=== PATIENT | male | born 1965 | race Two or more races ===

== ENCOUNTER → 2017-09-26 | Outpatient (CLI) | payer OTHER ==
[~2017-09-26] VITALS: Ht 152.4 cm; Wt 98.9 kg
[~2017-09-26] MED LIST: CRESTOR5 MG; GILTUSS TR TAB1 EACH; HYZAAR 50-12.51 EACH; MUCINEX DM ER1 EAC1; NEURONTIN300 MG PO; NORVASC2.5 M1; QVAR8.7 G1 PO; SINGULAIR10 MG; SYNTHROID50 MCG; XYZAL5 MG
== END | disposition home or self-care (01) ==
LOC: PPHC 11:56
DX: R05 Cough (principal); J06.9 Acute upper respiratory infection, unspecified; J11.1 Influenza due to unidentified influenza virus with other respiratory manifestations

== ENCOUNTER → 2017-10-02 13:53 | Outpatient (CLI) | payer OTHER ==
[~2017-10-02] VITALS: Ht 152.4 cm; Wt 98.0 kg
== END | disposition home or self-care (01) ==
LOC: PPHC 13:53
DX: R05 Cough (principal); Z76.0 Encounter for issue of repeat prescription

== ENCOUNTER 2023-07-02 07:55 | Outpatient (CLI) | payer OTHER | END 2023-07-02 08:14 | disposition home or self-care (01) | LOC: MRI 07:55 | PROVIDERS: ATTEND Urology | DX: R31.21 Asymptomatic microscopic hematuria (principal); N28.1 Cyst of kidney, acquired | CPT/HCPCS: 74183 ==

== ENCOUNTER 2024-04-02 13:57 | Emergency (ER) | payer OTHER ==
[~2024-04-02] VITALS: Ht 175.3 cm; Wt 97.5 kg
[2024-04-02] MEDS ORDERED: NORVASC5 MG PO (14:38)
[2024-04-02] MEDS ORDERED: SYNTHROID75 MCG PO (14:38)
[2024-04-02] MEDS ORDERED: SYMBICORT 16010.2 GM IH (14:38)
[2024-04-02] MEDS ORDERED: COZAAR50 MG PO (14:38)
[2024-04-02] MEDS ORDERED: ABATINEX680 MG PO (14:39)
[2024-04-02] MEDS ORDERED: XYZAL5 MG PO (14:39)
[2024-04-02] MEDS ORDERED: SINGULAIR10 MG PO (14:39)
[2024-04-02] MEDS ORDERED: CRESTOR5 MG PO (14:39)
[2024-04-02] MEDS ORDERED: VITAMIN D325 GM MC (14:40)
[2024-04-02] MEDS ORDERED: DEXAMETHASONE SODIUM PHOSPHATE 4 MG/ML VIAL IM STA (16:46)
[2024-04-02] MEDS ORDERED: ORPHENADRINE CITRATE 30 MG/ML AMPUL IM STA (16:46)
[2024-04-02] MEDS ORDERED: TRAMADOL HCL 50 MG TABLET PO STA (16:47)
[2024-04-02] MEDS ORDERED: TETRACYCLINE H250 M1 PO (18:55)
== END 2024-04-02 17:39 | disposition home or self-care (01) ==
LOC: ER 13:58
DX: K08.89 Other specified disorders of teeth and supporting structures (principal); Z88.0 Allergy status to penicillin; Z88.2 Allergy status to sulfonamides; Z91.018 Allergy to other foods

== ENCOUNTER 2024-08-26 07:24 | Emergency (ER) | payer OTHER ==
[~2024-08-26] VITALS: Ht 175.3 cm; Wt 102.1 kg
[~2024-08-26 07:24] MED LIST changes: +ABATINEX680 MG PO; +COZAAR50 MG PO; +CRESTOR5 MG PO; +NORVASC5 MG PO; +SINGULAIR10 MG PO; +SYMBICORT 16010.2 GM IH; +SYNTHROID75 MCG PO; +TETRACYCLINE H250 M1 PO; +VITAMIN D325 GM MC; +XYZAL5 MG PO
[2024-08-26 08:43] LABS: HEMATOCRIT 45.7 % (39.0-48.0); HEMOGLOBIN 15.6 g/dL (13-16.00); MEAN CORPUSCULAR HEMOGLOBIN 32.4 pg (27.00-32.0); MEAN CORPUSCULAR HGB CONC 34.1 g/dl (32.0-36.0); PLATELET COUNT 281 K/uL (150-450); RED BLOOD COUNT 4.81 M/uL (4.00-6.00); RED CELL DISTRIBUTION WIDTH 13.9 % (11.5-14.5)
[2024-08-26 09:19] LABS: URINE APPEARANCE Clear; URINE BILIRRUBIN Negative (NEGATIVE); URINE BLOOD NHT; URINE COLOR Yellow; URINE GLUCOSE Negative (NEGATIVE); URINE KETONE Negative (NEGATIVE); URINE LEUKOCYTE Negative; URINE NITRATE Negative; URINE PROTEIN Negative (NEGATIVE); URINE UROBILINOGEN 0.2 E.U./dl
[2024-08-26 09:23] LABS: URINE RBC 19.6 uL (0.0-20.8)
[2024-08-26 09:24] LABS: URINE BACTERIA 3.7 uL (0.0-1933); URINE EPITHELIAL CELLS 0.1 uL (0.0-38.8); URINE WBC 0.6 uL (0.0-23.2)
[2024-08-26 09:25] LABS: CALCIUM 9.1 mg/dL (8.5-10.1); CREATININE SERUM 0.98 mg/dL (0.70-1.30); GFR 78.83; POTASSIUM 3.87 mEq/L (3.5-5.1)
== END 2024-08-26 15:42 | disposition home or self-care (01) ==
LOC: ER 07:26
PROVIDERS: Emergency Medicine
DX: K57.30 Diverticulosis of large intestine without perforation or abscess without bleeding (principal); K52.89 Other specified noninfective gastroenteritis and colitis; N28.1 Cyst of kidney, acquired; I10 Essential (primary) hypertension; E03.9 Hypothyroidism, unspecified; Z88.0 Allergy status to penicillin; Z88.2 Allergy status to sulfonamides; Z91.018 Allergy to other foods

== ENCOUNTER 2025-02-17 11:08 | Emergency (ER) | payer OTHER ==
[~2025-02-17] VITALS: Ht 175.3 cm; Wt 97.5 kg
[2025-02-17 11:20] VITALS: BP 144/83; O2SAT 97
[2025-02-17] MEDS ORDERED: 0.9 % SODIUM CHLORIDE 1,000 ML IV STA (11:35)
[2025-02-17 12:39] LABS: BASO % 0.5 % (0.1-1.2); EOS # 0.13 (0.04-0.54); EOS % 1.7 % (0.7-7.0); HEMOGLOBIN 16.2 g/dL (13.7-17.5); LYMPH # 1.31 (1.18-3.74); LYMPH % 16.7 % (19.3-53.1); MEAN CORPUSCULAR HEMOGLOBIN 31.2 pg (25.6-32.2); MONO # 0.95 (0.24-0.82); NEUT # 5.41 (1.56-6.13); NEUT % 68.7 % (34.0-71.1); PLATELET COUNT 296 K/uL (163-369); RED BLOOD COUNT 5.19 M/uL (4.63-6.08); RED CELL DISTRIBUTION WIDTH 13.1 % (11.6-14.4)
[2025-02-17 12:42] LABS: MONO % 12.1 % (4.7-12.5)
[2025-02-17 12:56] LABS: CALCIUM 9.1 mg/dL (8.5-10.1); GFR 76.75; POTASSIUM 4.02 mEq/L (3.5-5.1)
[2025-02-17] MEDS ORDERED: BARIUM SULFATE 450 ML ORAL.SUSP PO ONE (12:59)
[2025-02-17 13:45] LABS: PH,URINE 6.5 (5.0-8.0); URINE APPEARANCE Clear; URINE BILIRRUBIN Negative (NEGATIVE); URINE BLOOD Negative; URINE COLOR Yellow; URINE GLUCOSE Negative (NEGATIVE); URINE KETONE 15 (NEGATIVE); URINE LEUKOCYTE Negative; URINE NITRATE Negative; URINE PROTEIN Negative (NEGATIVE); URINE UROBILINOGEN 0.2 E.U./dl
[2025-02-17 13:51] LABS: URINE EPITHELIAL CELLS 2.2 uL (0.0-38.8); URINE RBC 39.1 uL (0.0-20.8); URINE WBC 1.8 uL (0.0-23.2)
[2025-02-17 13:52] LABS: URINE BACTERIA 1.2 uL (0.0-1933)
[2025-02-17] MEDS ORDERED: INTESTINEX680 M1 PO (17:43)
[2025-02-17] MEDS ORDERED: LEVSIN/SL0.125 MG SL (17:43)
[2025-02-17] MEDS ORDERED: CIPRO500 MG PO (17:43)
[2025-02-17] MEDS ORDERED: PEPCID AC20 MG PO (17:43)
[2025-02-17] MEDS ORDERED: METRONIDAZOLE500 MG PO (17:43)
== END 2025-02-17 18:03 | disposition home or self-care (01) ==
LOC: ER 11:12
PROVIDERS: Emergency Medicine
DX: K52.9 Noninfective gastroenteritis and colitis, unspecified (principal); R10.9 Unspecified abdominal pain; I10 Essential (primary) hypertension; Z88.0 Allergy status to penicillin; Z88.2 Allergy status to sulfonamides; Z91.018 Allergy to other foods
CPT/HCPCS: 36415; 74177; Q9965

== ENCOUNTER 2025-02-22 11:40 | Inpatient (IN) | payer OTHER ==
[~2025-02-22] VITALS: Ht 175.3 cm; Wt 97.5 kg
[~2025-02-22 11:40] MED LIST changes: +CIPRO500 MG PO; +INTESTINEX680 M1 PO; +LEVSIN/SL0.125 MG SL; +METRONIDAZOLE500 MG PO; +PEPCID AC20 MG PO
[2025-02-22] MEDS ORDERED: 0.9 % SODIUM CHLORIDE 1,000 ML IV STA (14:07)
[2025-02-22 15:37] LABS: BASO % 0.3 % (0.1-1.2); HEMATOCRIT 49.3 % (40.1-51.0); HEMOGLOBIN 17.2 g/dL (13.7-17.5); LYMPH # 0.82 (1.18-3.74); LYMPH % 8.7 % (19.3-53.1); MEAN CORPUSCULAR HEMOGLOBIN 31.2 pg (25.6-32.2); MONO % 10.6 % (4.7-12.5); NEUT # 7.57 (1.56-6.13); NEUT % 80.2 % (34.0-71.1); PLATELET COUNT 293 K/uL (163-369); RED BLOOD COUNT 5.52 M/uL (4.63-6.08); RED CELL DISTRIBUTION WIDTH 13.2 % (11.6-14.4)
[2025-02-22 15:50] LABS: COVID-19 AG NEGATIVE (NEGATIVE)
[2025-02-22 15:55] LABS: POTASSIUM 3.72 mEq/L (3.5-5.1)
[2025-02-22 15:59] LABS: INFLUENZA A AG NEGATIVE (NEGATIVE); INFLUENZA B AG NEGATIVE (NEGATIVE)
[2025-02-22 16:01] LABS: CREATININE SERUM 1.09 mg/dL (0.70-1.30); GFR 69.48
[2025-02-22] MEDS ORDERED: ACETAMINOPHEN 500 MG GEL..CAP PO PRN (19:00)
[2025-02-22] MEDS ORDERED: FAMOTIDINE/PF 20 MG in 0.9 % SODIUM CHLORIDE 8 ML IV PUSH SCH (19:16)
[2025-02-22] MEDS ORDERED: IPRATROPIUM BROMIDE 0.5 MG/2.5 ML AMPUL.NEB IH SCH (19:17)
[2025-02-22] MEDS ORDERED: LEVALBUTEROL HCL 1.25 MG/3 ML SOLUTION IH SCH (19:17)
[2025-02-22] MEDS ORDERED: 0.9 % SODIUM CHLORIDE 1,000 ML IV SCH (19:30)
[2025-02-22] MEDS ORDERED: KETOROLAC TROMETHAMINE 15 MG VIAL IV ONE (19:30)
[2025-02-22] MEDS ORDERED: METHYLPREDNISOLONE SOD SUCC 125 MG VIAL IV ONE (19:30)
[2025-02-22] MEDS ORDERED: METHYLPREDNISOLONE SOD SUCC 125 MG VIAL ONE (19:35)
[2025-02-22] MEDS ORDERED: GUAIFEN/DEXTROMETHORPHAN/PE 10 ML BLIST.PACK PO ONE ×2 (19:35→23:54)
[2025-02-22] MEDS ORDERED: KETOROLAC TROMETHAMINE 30 MG VIAL ONE (19:35)
[2025-02-22] MEDS ORDERED: FAMOTIDINE/PF 20 MG/2 ML VIAL ONE (19:35)
[2025-02-22 20:48] VITALS: BP 122/75
[2025-02-22 20:48] LABS: URINE APPEARANCE Clear; URINE BILIRRUBIN Negative (NEGATIVE); URINE BLOOD Moderate; URINE COLOR Dark Yellow; URINE GLUCOSE Negative (NEGATIVE); URINE LEUKOCYTE Trace; URINE NITRATE Negative; URINE PROTEIN 30 (NEGATIVE); URINE UROBILINOGEN 0.2 E.U./dl
[2025-02-22 20:53] LABS: URINE EPITHELIAL CELLS 3.3 uL (0.0-38.8); URINE RBC 279.8 uL (0.0-20.8); URINE WBC 3.9 uL (0.0-23.2)
[2025-02-22 20:57] LABS: URINE BACTERIA 1.2 uL (0.0-1933); URINE KETONE 80 (NEGATIVE)
[2025-02-22 20:57] LABS: COVID-19 AG NEGATIVE (NEGATIVE)
[2025-02-22] MEDS ORDERED: CIPROFLOXACIN IN 5 % DEXTROSE 200 ML IV SCH (21:00)
[2025-02-22] MEDS ORDERED: GUAIFEN/DEXTROMETHORPHAN/PE 10 ML BLIST.PACK PO SCH (21:00)
[2025-02-22 21:04] LABS: INR 1.21; PARTIAL THROMBOPLASTIN TIME 28.7 SECONDS (22.0-34.0)
[2025-02-22 21:09] LABS: C-REACTIVE PROTEIN 1.37 MG/DL (0.00-0.29)
[2025-02-22] MEDS ORDERED: METRONIDAZOLE/SODIUM CHLORIDE 500 MG/100 ML PIGGYBACK IV ONE (23:54)
[2025-02-23] MEDS ORDERED: METRONIDAZOLE/SODIUM CHLORIDE 100 ML IV SCH (01:00)
[2025-02-23] MEDS ORDERED: FAMOTIDINE/PF 20 MG/2 ML VIAL ONE (05:26)
[2025-02-23] MEDS ORDERED: GUAIFEN/DEXTROMETHORPHAN/PE 10 ML BLIST.PACK PO ONE (05:26)
[2025-02-23] MEDS ORDERED: LEVOTHYROXINE SODIUM 75 MCG TABLET PO SCH (06:00)
[2025-02-23 07:36] VITALS: BP 124/75; O2SAT 96
[2025-02-23] MEDS ORDERED: LOSARTAN POTASSIUM 50 MG TABLET PO SCH (09:00)
[2025-02-23 09:40] LABS: HEMATOCRIT 46.5 % (40.1-51.0); HEMOGLOBIN 16.2 g/dL (13.7-17.5); LYMPH # 0.65 (1.18-3.74); LYMPH % 7.5 % (19.3-53.1); MONO # 0.25 (0.24-0.82); MONO % 2.9 % (4.7-12.5); NEUT # 7.68 (1.56-6.13); NEUT % 89.3 % (34.0-71.1); PLATELET COUNT 251 K/uL (163-369); RED BLOOD COUNT 5.23 M/uL (4.63-6.08)
[2025-02-23 10:19] LABS: FECAL LEUKOCYTES POSITIVE (NEGATIVE)
[2025-02-23 10:44] LABS: ALBUMIN 3.3 gm/dL (3.4-5.0); BILIRUBIN TOTAL 0.41 mg/dL (0.3-1.2); CALCIUM 8.6 mg/dL (8.5-10.1); CREATININE SERUM 0.85 mg/dL (0.70-1.30); GFR 92.58; POTASSIUM 4.13 mEq/L (3.5-5.1); TOTAL PROTEIN 6.3 gm/dL (6.4-8.2)
[2025-02-23 16:45] VITALS: BP 115/68
[2025-02-23] MEDS ORDERED: ROSUVASTATIN CALCIUM 10 MG TABLET PO SCH (17:00)
[2025-02-23] MEDS ORDERED: MONTELUKAST SODIUM 10 MG TABLET PO SCH (17:00)
[2025-02-23] MEDS ORDERED: LACTOBACILLUS ACIDOPHILUS 1 CAP CAP PO SCH (17:00)
[2025-02-23] MEDS ORDERED: 0.9 % SODIUM CHLORIDE 10 ML VIAL IJ ONE (22:58)
[2025-02-24 01:34] VITALS: BP 108/67
[2025-02-24 06:53] LABS: ALBUMIN 2.9 gm/dL (3.4-5.0); BILIRUBIN TOTAL 0.23 mg/dL (0.3-1.2); CALCIUM 8.3 mg/dL (8.5-10.1); CREATININE SERUM 0.81 mg/dL (0.70-1.30); GFR 97.87; GLOBULINA 2.5 G/DL (2.4-3.5); MAGNESIUM 2.2 mg/dL (1.8-2.4); PHOSPHOROUS 4.1 mg/dL (2.5-4.9); POTASSIUM 4.02 mEq/L (3.5-5.1); TOTAL PROTEIN 5.4 gm/dL (6.4-8.2)
[2025-02-24 06:58] LABS: BASO % 0.2 % (0.1-1.2); EOS # 0.01 (0.04-0.54); EOS % 0.1 % (0.7-7.0); HEMOGLOBIN 13.8 g/dL (13.7-17.5); LYMPH # 1.66 (1.18-3.74); MEAN CORPUSCULAR HEMOGLOBIN 30.9 pg (25.6-32.2); MONO # 1.51 (0.24-0.82); MONO % 11.8 % (4.7-12.5); NEUT # 9.55 (1.56-6.13); NEUT % 74.5 % (34.0-71.1); PLATELET COUNT 248 K/uL (163-369); RED BLOOD COUNT 4.47 M/uL (4.63-6.08); RED CELL DISTRIBUTION WIDTH 13.5 % (11.6-14.4)
[2025-02-24 06:59] LABS: C-REACTIVE PROTEIN 1.13 MG/DL (0.00-0.29)
[2025-02-24 07:30] VITALS: BP 123/76; O2SAT 96
[2025-02-24 08:27] LABS: MYCOPLASMA PNEUMONIAE IGM NON REACTIVE (NO REACTIVE)
[2025-02-24] MEDS ORDERED: LEVALBUTEROL HCL 1.25 MG/3 ML SOLUTION IH SCH (09:00)
[2025-02-24] MEDS ORDERED: levoFLOXacin IN DEXTROSE 5 % 5 MG/ML PIGGYBAG IV SCH (09:00)
[2025-02-24] MEDS ORDERED: IPRATROPIUM BROMIDE 0.5 MG/2.5 ML AMPUL.NEB IH SCH (12:00)
[2025-02-24 17:42] VITALS: BP 104/63; O2SAT 97
[2025-02-25 00:46] VITALS: BP 99/58; O2SAT 96
[2025-02-25 07:00] VITALS: BP 107/68; O2SAT 95
[2025-02-25 23:11] LABS: GIARDIA LAMBLIA EIA Negative (Negative)
[2025-03-01 17:12] LABS: campy Final report (.)
== END 2025-02-25 11:58 | disposition home or self-care (01) | DRG 392 ==
LOC: ER 11:40 → MEDI 19:41 → SEC-K 19:41 → MEDI 19:44 → MEDJ 02-23 01:43 → SEC-K 02-23 01:44 → MEDI 02-23 08:38
PROVIDERS: General Practice; Internal Medicine Infectious Disease; ADMIT Internal Medicine; ATTEND Internal Medicine
PROC: BW21ZZZ Computerized Tomography (CT Scan) of Abdomen and Pelvis (ICD-10-PCS; principal; 2025-02-22)
DX: A09 Infectious gastroenteritis and colitis, unspecified (principal); J45.901 Unspecified asthma with (acute) exacerbation; I10 Essential (primary) hypertension; E03.9 Hypothyroidism, unspecified; E78.5 Hyperlipidemia, unspecified

== ENCOUNTER 2025-03-24 13:09 | Outpatient (CLI) | payer OTHER | END 2025-03-24 13:14 | disposition home or self-care (01) | LOC: SONOGRAMA 13:09 | PROVIDERS: ATTEND Internal Medicine Endocrinology, Diabetes & Metabolism | DX: E04.1 Nontoxic single thyroid nodule (principal) ==